=== PATIENT | female | born 1985 | race American Indian/Alaskan Native ===

== ENCOUNTER 2017-02-05 16:12 | Emergency (ER) | payer SELFPAY ==
[2017-02-05 18:07] LABS: Alanine Aminotransferase 8 units/L (7-56); Albumin 3.7 g/dL (3.9-5); Albumin/Globulin Ratio 1.4 %; Alkaline Phosphatase 44 units/L (35-129); Anion Gap 17 mmol/L; Bilirubin,Total < 0.20 mg/dL (0.1-1.2); Blood Urea Nitrogen 9 mg/dL (7-17); Calcium 8.8 mg/dL (8.4-10.2); Carbon Dioxide 24 mmol/L (22-30); Chloride 98.3 mmol/L (98-107); Glucose 100 mg/dL (65-100); Potassium 3.8 mmol/L (3.6-5.0); Sodium 135 mmol/L (137-145); Total Protein 6.4 g/dL (6.3-8.2)
[2017-02-05 18:12] LABS: Basophils % (Auto) 1.2 % (0.0-1.8); Eosinophils % (Auto) 0.4 % (0.0-4.3); Hematocrit 27.7 % (30.3-42.9); Hemoglobin 8.3 gm/dl (10.1-14.3); Mean Corpuscular HGB Conc 30 % (30-34); Platelet Count 228 K/mm3 (140-440); Red Blood Count 4.74 M/mm3 (3.65-5.03)
[2017-02-05 18:50] LABS: Mean Corpuscular Hemoglobin 18 pg (28-32); Mean Corpuscular Volume 59 fl (79-97); Red Cell Distribution Width 20.1 % (13.2-15.2)
[2017-02-05 18:59] LABS: Bilirubin,Urine NEG (Negative); Blood,Urine NEG (Negative); Ketones,Urine NEG (Negative); Mucus,Urine FEW /HPF; Nitrite,Urine NEG (Negative); Protein,Urine <15 mg/dL mg/dL (Negative)
[2017-02-05 19:03] LABS: Leukocyte Esterase,Urine Trace (Negative)
--- NOTE | 2017-02-05 23:21 | Emergency Department Report ---
ED Abdominal Pain HPI - General Chief Complaint: Nausea/Vomiting/Diarrhea Stated Complaint: NAUSEA AND VOMITING,WEAKNESS Time Seen by Provider: 02/05/17 23:12 Source: patient Mode of arrival: Ambulatory Limitations: No Limitations - History of Present Illness Initial Comments: Patient is 31 years old female 4 para 3, presented to his abdominal pain for the last 5 or 6 days crampy, suprapubic does not radiates. Patient denied any vaginal bleeding no other complaints MD Complaint: abdominal pain -: Gradual, week(s) Location: suprapubic Radiation: none Migration to: no migration Severity: mild Severity scale (0 -10): 3 Quality: cramping Consistency: intermittent Associated Symptoms: denies: nausea, vomiting, diarrhea, fever, chills, constipation, dysuria, hematemesis, hematochezia, melena, hematuria, anorexia, syncope - Related Data LMP (females 10-50): 1 month Previous Rx's Medication Instructions Recorded Last Taken Type Amoxicillin/K Clav Tab [Augmentin 1 tab PO BID #20 tablet 09/27/14 Unknown Rx 875MG] Ferrous Sulfate [Feosol 325 MG tab] 325 mg PO BID #60 tablet 02/06/17 Unknown Rx Ondansetron [Zofran Odt] 4 mg PO Q8HR PRN #14 tab.rapdis 02/06/17 Unknown Rx Allergies Allergy/AdvReac Type Severity Reaction Status Date / Time No Known Allergies Allergy Unverified 09/27/14 12:08 ED Review of Systems ROS: Stated complaint: NAUSEA AND VOMITING,WEAKNESS Other details as noted in HPI Comment: All other systems reviewed and negative Constitutional: denies: chills, fever ENT: denies: ear pain Cardiovascular: denies: chest pain, palpitations Gastrointestinal: abdominal pain. denies: nausea, vomiting Genitourinary: denies: urgency, abnormal menses Musculoskeletal: denies: back pain, joint swelling Skin: denies: rash Neurological: denies: headache, numbness, paresthesias ED Past Medical Hx - Past Medical History Previous Medical History?: No Additional medical history: Vaginal delivery - Surgical History Past Surgical History?: No - Social History Smoking Status: Current Some Day Smoker Substance Use Type: None - Medications Home Medications: Home Medications Medication Instructions Recorded Confirmed Last Taken Type Amoxicillin/K Clav Tab [Augmentin 1 tab PO BID #20 tablet 09/27/14 Unknown Rx 875MG] Ferrous Sulfate [Feosol 325 MG tab] 325 mg PO BID #60 tablet 02/06/17 Unknown Rx Ondansetron [Zofran Odt] 4 mg PO Q8HR PRN #14 tab.rapdis 02/06/17 Unknown Rx ED Physical Exam - General Limitations: No Limitations General appearance: alert, in no apparent distress - Head Head exam: Present: atraumatic - Eye Eye exam: Present: normal appearance - ENT ENT exam: Present: normal exam - Neck Neck exam: Present: normal inspection - Respiratory Respiratory exam: Present: normal lung sounds bilaterally. Absent: wheezes, rales, rhonchi - Cardiovascular Cardiovascular Exam: Present: regular rate, normal rhythm, normal heart sounds - GI/Abdominal GI/Abdominal exam: Present: soft, normal bowel sounds. Absent: distended, tenderness, guarding, rebound, rigid, organomegaly, mass, bruit, pulsatile mass , hernia - Extremities Exam Extremities exam: Present: normal inspection, full ROM, normal capillary refill - Neurological Exam Neurological exam: Present: alert, oriented X3, CN II-XII intact, normal gait - Skin Skin exam: Present: warm, intact, normal color ED Course Vital Signs 02/05/17 02/05/17 17:06 21:45 Temperature 98.8 F Pulse Rate 81 64 Respiratory 16 16 Rate Blood Pressure 102/57 Blood Pressure 107/57 [Left] O2 Sat by Pulse 97 95 Oximetry - Reevaluation(s) Reevaluation #1: 02/06/17 01:33 Patient stated that she is feeling better just got back from ultrasound no acute distress. ED Medical Decision Making - Lab Data Result diagrams: 02/05/17 17:30 02/05/17 17:30 - Radiology Data Radiology results: report reviewed Ultrasound and transvaginal pelvic, subchorionic bleed 1.8 cm, no other acute abnormalities. - Medical Decision Making Patient stated that she is feeling better, labs reviewed show a hemoglobin of 8 vision does have history of chronic anemia I will prescribe her ferrous sulfate , and I advised patient will always her OB doctor. Critical care attestation.: If time is entered above; I have spent that time in minutes in the direct care of this critically ill patient, excluding procedure time. ED Disposition Clinical Impression: Abdominal pain affecting , Anemia affecting Disposition: DC-01 TO HOME OR SELFCARE Is pt being admited?: No Condition: Stable Instructions: (ED), Iron Deficiency Anemia (ED), Iron Rich Diet (ED) Referrals: PRIMARY CARE, [Primary Care Provider] - 3-5 Days
[2017-02-06 01:46] VITALS: BP 101/59
--- NOTE | 2017-02-06 10:55 | Ultrasound Report ---
FINAL REPORT EXAM: US OB \T\lt; = 14 WEEKS FETUS HISTORY: ABDOMINAL PAIN TECHNIQUE: Routine imaging was obtained of the pelvis. There are no previous studies available for comparison. FINDINGS: There is a single viable intrauterine with an estimated gestational age of 8 weeks 1 day based on crown-rump length. The heart rate is 166 B p.m.. There is an intrauterine yolk sac noted. The gestational sac is normal in configuration. The maternal left ovary is normal in size contour and echotexture measuring 3.9 cm x 2.1 cm x 2.3 cm. The right ovary is not imaged. Free fluid is not seen. IMPRESSION: Single viable intrauterine with a gestational age of 8 weeks 1 day. heart rate is 166 bpm.
--- NOTE | 2017-02-06 10:55 | Ultrasound Report ---
FINAL REPORT EXAM: US OB TRANSVAGINAL HISTORY: ABDOMINAL PAIN TECHNIQUE: Routine transvaginal imaging was obtained of the pelvis for evaluation of the patient's intrauterine . There are no previous studies available for comparison. FINDINGS: There is a single viable intrauterine with an estimated gestational age of 8 weeks 0 days based on crown-rump length of 16.4 millimeters. Within the gestational sac is a yolk sac also. There is a small subchorionic bleed measuring 1.8 cm x 1.4 cm x 1.1 cm. There is a small amount of free fluid in the cul-de-sac. The right ovary measures 3.6 cm x 2.6 cm x 3 cm. Within the right ovary is a hypoechoic nodule measuring 1.7 cm which is indeterminate. The left ovary is normal in size contour and echotexture measuring 3.9 cm x 2.1 cm x 2.3 cm. The heart rate is 166 BPM. IMPRESSION: Single viable intrauterine with an estimated gestational age of 8 weeks 0 days. heart rate of 166 bpm. Small subchorionic bleed measuring 1.8 cm x 1.4 cm x 1.1 cm. Follow-up studies recommended. Indeterminate 1.7 cm hypoechoic nodule in the right ovary noted. Small amount of free fluid in the cul-de-sac.
== END 2017-02-06 01:47 | disposition home or self-care (01) ==
LOC: ED 16:12
DX: O26.899 Other specified pregnancy related conditions, unspecified trimester (principal); R10.30 Lower abdominal pain, unspecified; O99.019 Anemia complicating pregnancy, unspecified trimester; F17.210 Nicotine dependence, cigarettes, uncomplicated; Z3A.00 Weeks of gestation of pregnancy not specified
CPT/HCPCS: 36415; 76801; 76817; 80053; 81001; 81025; 84702; 84703; 85025; 99284